=== PATIENT | female | born 1960 | race Caucasian/White ===

== ENCOUNTER 2017-01-17 08:02 | Emergency (ER) | payer MEDICARE ==
[~2017-01-17] VITALS: Ht 165.1 cm; Wt 80.0 kg
[2017-01-17] VITALS (7 sets, daily range): BP systolic 118–169; BP diastolic 66–86; PULSE 80–87; RESP 16–20; TEMP 98.1–99.1; O2SAT 94–99
[~2017-01-17 08:02] MED LIST: IBUP-232 PO; TYLE3 PO
--- NOTE | 2017-01-17 09:03 | RADRPT ---
EXAM DATE/TIME: 01/17/2017 08:38 [facility] COMPARISON: No previous studies available for comparison. EXTERNAL COMPARISON : [facility] INDICATIONS : Dyspnea and chest pain. MEDICAL HISTORY : None. SURGICAL HISTORY : None. ENCOUNTER: Initial ACUITY: 1 month PAIN SCORE: 6/10 LOCATION: Bilateral chest FINDINGS: PA and lateral views of the chest demonstrate bilateral pleural effusions, left greater than right. C oncomitant atelectatic changes in the left base. Heart size is normal. Osseous structures are intact with some degenerative spurring of the dorsal spine. CONCLUSION: 1. Bilateral pleural effusions, left greater than right. Concomitant atelectatic changes in the left base. 2. Heart size is normal. Reuben Hua MD on January 17, 2017 at 9:01 Board Certified Radiologist. This report was verified electronically.
[2017-01-17 09:13] LABS: AUTOMATED NEUTROPHIL # 2.5 TH/MM3 (1.8-7.7); BASOPHIL % 0.4 % (0.0-2.0); EOSINOPHIL # 0.1 TH/MM3 (0-0.4); EOSINOPHIL % 2.7 % (0.0-4.0); HEMATOCRIT 35.9 % (35.0-46.0); LYMPH % 24.3 % (9.0-44.0); LYMPHOCYTE # 0.9 TH/MM3 (1.0-4.8); MEAN CELL VOLUME 94.7 FL (80.0-100.0); MEAN CORPUSCULAR HEMOGLOBIN 32.7 PG (27.0-34.0); MEAN CORPUSCULAR HGB CONC 34.6 % (32.0-36.0); MONO % 6.5 % (0.0-8.0); NEUT % 66.1 % (16.0-70.0); PLATELET COUNT 413 TH/MM3 (150-450); RED BLOOD COUNT 3.79 MIL/MM3 (4.00-5.30); RED CELL DISTRIBUTION WIDTH 12.3 % (11.6-17.2); WHITE BLOOD COUNT 3.8 TH/MM3 (4.0-11.0)
[2017-01-17 09:27] LABS: HEMO FLAGS AUTO DIFF
[2017-01-17 09:30] LABS: POTASSIUM 4.1 MEQ/L (3.5-5.1)
[2017-01-17 09:44] LABS: BANDS 9 % (0-6); EOSINOPHILS 2 % (0-4); MYELOCYTES 1 % (0-0); NEUTROPHIL # MANUAL DIFF 2.9 TH/MM3 (1.8-7.7); POLYS (SEG NEUTROPHILS) 67 % (16-70); WBC DIFF SAMPLE 100
[2017-01-17 09:45] LABS: PLATELET ESTIMATE SMEAR NORMAL (NORMAL); PLATELET MORPHOLOGY NORMAL (NORMAL); SCAN/DIFF FINAL DIFF MANUAL
--- NOTE | 2017-01-17 10:19 | PD ---
HPI Chief Complaint: Respiratory Symptoms Time Seen by Provider: 10:17 Travel History International Travel<30 days: No Contact w/Intl Traveler<30days: No Traveled to known affect area: No History of Present Illness HPI 56-year-old female came to the emergency room with history of shortness of breath. She says that she has had this for past 1 month. She went to her primary care who had ordered a chest x-ray. It showed some fluid in the lungs and her primary care asked her to come to the emergency room. Patient is a smoker. No history of fever or chills. No history of coughing up blood. Her vital signs were relatively stable in the triage. She is comfortable sitting on the stretcher and answering questions appropriately. [facility] Past Medical History Narrative Medical List of her past medical, surgical, social and family history was reviewed from the nursing note. Bipolar Disorder: Yes High Cholesterol: Yes Tetanus Vaccination: > 5 Years Influenza Vaccination: No ?: Not Past Surgical History Hysterectomy: Yes Tonsillectomy: Yes Social History Alcohol Use: No Tobacco Use: Yes (4-5 CIGS/ DAY) Substance Use: No Allergies-Medications (Allergen,Severity, Reaction): Coded Allergies: No Known Allergies (Unverified , 08/01/15) Comments No known allergies. Reported Meds & Prescriptions Reported Meds & Active Scripts Active Tylenol #3 (Acetaminophen/Codeine Phosphate) Acetaminophen 300/30 Codeine Tab 1 Tab PO Q6H PRN FOR PAIN Motrin (Ibuprofen) 600 Mg Tab 1 Tab PO TID NEEDED FOR PAIN Narrative Medication List of her home medications reviewed from the nursing note. Review of Systems Except as stated in HPI: all other systems reviewed are Neg Physical Exam Narrative GENERAL: Awake, alert, no obvious distress SKIN: Warm and dry. HEAD: Atraumatic. Normocephalic. EYES: Pupils equal and round. No scleral icterus. No injection or drainage. ENT: No nasal bleeding or discharge. Mucous membranes pink and moist. NECK: Trachea midline. No JVD. CARDIOVASCULAR: Regular rate and rhythm. No murmur appreciated. RESPIRATORY: No accessory muscle use. Decreased air entry in the left base GASTROINTESTINAL: Abdomen soft, non-tender, nondistended. Hepatic and splenic margins not palpable. MUSCULOSKELETAL: No obvious deformities. No clubbing. No cyanosis. No edema. NEUROLOGICAL: Awake and alert. No obvious cranial nerve deficits. Motor grossly within normal limits. Normal speech. PSYCHIATRIC: Appropriate mood and affect; insight and judgment normal. Data Data Last Documented VS Orders Complete Blood Count With Diff (01/17/17 08:22) Basic Metabolic Panel (Bmp) (01/17/17 08:22) Chest, Pa & Lat (01/17/17 08:22) Iv Access Insert/Monitor (01/17/17 08:22) Ecg Monitoring (01/17/17 08:22) Oxygen Administration (01/17/17 08:22) Oximetry (01/17/17 08:22) Electrocardiogram (01/17/17 08:22) B-Type Natriuretic Peptide (01/17/17 08:22) Prothrombin Time / Inr (Pt) (01/17/17 11:10) Us Guided Thoracentesis (01/17/17 ) Pleural Fl Cell Count + Diff (01/17/17 11:30) Cytology Request For Service (01/17/17 11:30) Fluid Culture And Gram Stain (01/17/17 11:30) Chest, Expiration Only (01/17/17 ) Labs MDM Medical Decision Making Medical Screen Exam Complete: Yes Emergency Medical Condition: Yes Medical Record Reviewed: Yes Interpretation(s) Twelve-lead EKG was reviewed by me. Normal sinus rhythm, normal axis, septal T- wave inversions. Heart rate of 80 bpm. Differential Diagnosis Pleural effusion, malignancy Narrative Course 12:32 PM blood test results were back and they're within normal limits. No history of fever or chills and hence my suspicion for pneumonia or parapneumonic effusion is very low. Patient is a smoker and my concern is malignancy. She is maintaining her saturations well and patient could be discharged home. I discussed this case with Dr. Beckham who is the ice cream van vendor art sales consultant. He wanted a pleurocentesis done and agreed that patient could be sent home after that and he would follow her up as an outpatient. Currently awaiting for the ultrasound-guided pleurocentesis to be done. INR came back and within normal limit. 3:26 PM ultrasound-guided thoracentesis was done and the fluid was sent. I will discharge this patient home. Procedures EKG Prior to Arrival: Yes Diagnosis Primary Impression: Pleural effusion Additional Impression: Respiratory distress Referrals: Dasia Forman MD 3 days Additional Instructions: Please follow-up with the ice cream van vendor's name and number been given to you in this discharge instruction. Call him tomorrow to get an appointment with him next week. Please return to the ER if the condition worsens or any other new concerns. Either hospital we will call you or the ice cream van vendor will notify him about the test result of the fluid aspiration that was done by ultrasound guidance. You may have some pain in the area where the aspiration was done. He can take Tylenol or Motrin for the pain relief. Med/Other Pt SpecificInfo: No Change to Meds Disposition: 01 DISCHARGE HOME Condition: Stable Emy Paez MD Jan 17, 2017 10:18 Lymphocytes # (Auto) 0.9 TH/MM3 Monocytes # (Auto) 0.2 TH/MM3 Eosinophils # (Auto) 0.1 TH/MM3 Basophils # (Auto) 0.0 TH/MM3 CBC Comment AUTO DIFF Differential Total Cells 100 Counted Neutrophils % (Manual) 67 % Band Neutrophils % 9 % Lymphocytes % 17 % Monocytes % 4 % Eosinophils % 2 % Neutrophils # (Manual) 2.9 TH/MM3 Myelocytes 1 % Differential Comment FINAL DIFF MANUAL Platelet Estimate NORMAL Platelet Morphology Comment NORMAL Red Cell Morphology Comment NORMAL Sodium Level 137 MEQ/L Potassium Level 4.1 MEQ/L Chloride Level 99 MEQ/L Carbon Dioxide Level 30.0 MEQ/L Anion Gap 8 MEQ/L Blood Urea Nitrogen 8 MG/DL Creatinine 0.72 MG/DL Estimat Glomerular Filtration 83 ML/MIN Rate Random Glucose 100 MG/DL Calcium Level 8.8 MG/DL B-Type Natriuretic Peptide 32 PG/ML Prothrombin Time 11.3 SEC Prothromb Time International 1.0 RATIO Ratio [facility] Medical Decision Making Medical Screen Exam Complete: Yes Emergency Medical Condition: Yes Medical Record Reviewed: Yes Interpretation(s) Twelve-lead EKG was reviewed by me. Normal sinus rhythm, normal axis, septal T- wave inversions. Heart rate of 80 bpm. Differential Diagnosis Pleural effusion, malignancy Narrative Course 12:32 PM blood test results were back and they're within normal limits. No history of fever or chills and hence my suspicion for pneumonia or parapneumonic effusion is very low. Patient is a smoker and my concern is malignancy. He is maintaining her saturations well and patient could be discharged home. I discussed this case with Dr. Beckham. He wanted a pleurocentesis done and agreed that patient could be sent home after that and he would follow her up as an outpatient. Currently awaiting for the ultrasound- guided pleurocentesis to be done. INR came back and within normal limit. 3:26 PM ultrasound-guided thoracentesis was done and the fluid was sent. I will discharge this patient home. Procedures EKG Prior to Arrival: Yes Diagnosis Primary Impression: Pleural effusion Additional Impression: Respiratory distress Referrals: Dasia Forman MD 3 days Additional Instructions: Please follow-up with the ice cream van vendor's name and number been given to you in this discharge instruction. Call him tomorrow to get an appointment with him next week. Please return to the ER if the condition worsens or any other new concerns. Either hospital we will call you or the ice cream van vendor will notify him about the test result of the fluid aspiration that was done by ultrasound guidance. You may have some pain in the area where the aspiration was done. He can take Tylenol or Motrin for the pain relief. Med/Other Pt SpecificInfo: No Change to Meds Disposition: 01 DISCHARGE HOME Condition: Stable Emy Paez MD Jan 17, 2017 10:18
[2017-01-17 11:51] LABS: PROTHROMBIN TIME - PATIENT 11.3 SEC (9.8-11.6)
--- NOTE | 2017-01-17 14:51 | EKG ---
Date Performed: 01/17/2017 Time Performed: 08:43:51 PTAGE: 56 years EKG: Sinus rhythm ST DEVIATION AND MODERATE T-WAVE ABNORMALITY, CONSIDER ANTERIOR ISCHEMIA ABNORMAL ECG NO PREVIOUS TRACING DOCTOR: Marcello Loya Interpretating Date/Time 01/17/2017 14:43:00
--- NOTE | 2017-01-17 15:16 | RADRPT ---
EXAM DATE/TIME: 01/17/2017 14:50 [facility] COMPARISON: CHEST PA & LAT, January 17, 2017, 8:38. INDICATIONS : Post left thoracentesis. MEDICAL HISTORY : Hypercholesterolemia. SURGICAL HISTORY : Tonsillectomy. Hysterectomy. Back surgery. ENCOUNTER: Subsequent ACUITY: 1 day PAIN SCORE: 0/10 LOCATION: Left chest FINDINGS: There is no evidence pneumothorax following thoracentesis. Hazy bibasilar pleural-parenchymal opaciti es persists, improved on the left. Cardiac contours are stable. CONCLUSION: No pneumothorax Estrada Connor MD on January 17, 2017 at 15:05 Board Certified Radiologist. This report was verified electronically.
--- NOTE | 2017-01-17 15:23 | RADRPT ---
EXAM DATE/TIME: 01/17/2017 14:07 [facility] COMPARISON: No previous studies available for comparison. EXTERNAL COMPARISON: [facility], CHEST- PA & LAT, Jan 16 2017. INDICATIONS : Left pleural effusion. MEDICAL HISTORY : Hypercholesterolemia. Bipolar disorder. SURGICAL HISTORY : Hysterectomy. Tonsillectomy. Back surgery. ENCOUNTER: Initial ACUITY: 2 days PAIN SCORE: 4/10 LOCATION: Left chest FLUID: Total volume of 325 cc of clear, red fluid was removed. Fluid was sent to lab for ordered studies. TECHNIQUE: 1. Ultrasound guidance for thoracentesis. 2. Thoracentesis. The risks, benefits, and alternatives to ultrasound guided thoracentesis were explained to the patien t in lay simple terms, including the risk of bleeding and infection. Written and verbal informed con sent was obtained. Appropriate area for thoracentesis was marked under ultrasound guidance with the patient in the uprig ht position. Overlying skin was prepped and draped in the usual sterile fashion and with local anest hetic, a dermatotomy was made with an 11 blade scalpel. A 6 [place] thoracentesis catheter was placed in the pleural space and fluid was removed. Catheter was then removed and a sterile dressing applie d. There were no immediate complications. The patient tolerated the procedure well and the left the ultrasound suite in stable condition. Chest radiograph is to be obtained. CONCLUSION: Uncomplicated ultrasound guided thoracentesis. Reuben Hau MD on January 17, 2017 at 15:22 Board Certified Radiologist. This report was verified electronically.
[2017-01-17 16:46] LABS: PLEURAL FLUID LYMPHS 82 %
== END 2017-01-17 16:26 | disposition home or self-care (01) ==
LOC: NEPC 08:02
DX: J90 Pleural effusion, not elsewhere classified (principal); R94.31 Abnormal electrocardiogram [ECG] [EKG]
CPT/HCPCS: 32555; 71010; 71020; 80048; 83880; 85007; 85027; 85610; 87070; 87205; 88112; 88305; 89051; 93005; 99285; C1729